=== PATIENT | male | born 1990 | race Caucasian/White ===

== ENCOUNTER → 2017-06-28 | Outpatient (CLI) | payer BC ==
[~2017-06-28] MED LIST: NOMEDS
--- NOTE | 2017-06-28 11:50 | RADIOLOGY REPORT PS360 ---
HIP RT 2-3V W/PELVIS IF PERFOR HISTORY: RT HIP PAIN ORDERING PHYSICIAN: Jesus Luna MD PATIENT AGE: 26 years COMPARISON: None FINDINGS: No fracture or dislocation is evident. No significant degenerative change. No lytic or blastic change. Prostate calcification noted IMPRESSION: Negative right hip
== END ==
LOC: RAD 10:56
DX: M25.551 Pain in right hip (principal)